=== PATIENT | female | born 1950 | race Caucasian/White ===

== ENCOUNTER 2017-10-08 17:21 | Inpatient (IN) | payer MEDICARE ==
[~2017-10-08] VITALS: Ht 152.4 cm; Wt 70.1 kg
[2017-10-08] MEDS ORDERED: FAMOTIDINE 20 MG/2 ML IVP ONE (18:00)
[2017-10-08] MEDS ORDERED: SODIUM CHLORIDE FLUSH 10ML SYR IVF ONE (18:00)
[2017-10-08] MEDS ORDERED: MAALOX/HYOSCYAMINE/LIDOCAINE 45 ML BTL PO ONE (18:00)
[2017-10-08] MEDS ORDERED: SODIUM CHLORIDE 0.9% 1,000ML IVBOLUS ONE (18:00)
[2017-10-08 18:55] LABS: ALANINE AMINOTRANSFERASE 20 U/L (12-78); ANION GAP 6 mmol/L (5-15); CALCIUM 9.5 mg/dL (8.5-10.1); CHLORIDE 107 mmol/L (98-107)
[2017-10-08 18:58] LABS: ALKALINE PHOSPHATASE 109 U/L (45-117); BILIRUBIN,TOTAL 0.5 mg/dL (0.2-1.0); CREATININE 0.86 mg/dL (0.55-1.02); TOTAL PROTEIN 7.7 g/dL (6.4-8.2)
[2017-10-08 19:14] LABS: BASOPHILS # (AUTO) 0.12 x10^3/uL (0-0.1); BASOPHILS % (AUTO) 1 % (0-1); EOSINOPHILS # (AUTO) 0.08 x10^3/uL (0-0.4); EOSINOPHILS % (AUTO) 1 % (1-7); LYMPHOCYTES # (AUTO) 2.26 x10^3/uL (1-3.4); LYMPHOCYTES % (AUTO) 24 % (22-44); MD SCAN; MEAN CORPUSCULAR HGB CONC 33.8 g/dL (32.4-35.8); MEAN CORPUSCULAR VOLUME 88.7 fL (80-100); MEAN PLATELET VOLUME 8.2 fL (7.4-10.4); MONOCYTES # (AUTO) 0.48 x10^3/uL (0.2-0.8); MONOCYTES % (AUTO) 5 % (2-9); NEUTROPHILS # (AUTO) 6.49 x10^3/uL (1.8-6.8); NEUTROPHILS % (AUTO) 69 % (42-75); PLATELET COUNT 261 x10^3/uL (130-400); RED BLOOD COUNT 5.45 x10^6/uL (3.82-5.3); RED CELL DISTRIBUTION WIDTH 14.3 % (9.6-15.2)
[2017-10-08] MEDS ORDERED: ONDANSETRON 2MG/ML, 2ML IVPush ONE (20:30)
[2017-10-08] MEDS ORDERED: MORPHINE SULFATE 4 MG/ML, 1ML IVPush ONE ×2 (20:30→22:30)
[2017-10-08] MEDS ORDERED: FAMOTIDINE 20 MG/2 ML ONE (20:58)
[2017-10-08] MEDS ORDERED: ONDANSETRON 2MG/ML, 2ML ONE (20:58)
[2017-10-08] MEDS ORDERED: MAALOX/HYOSCYAMINE/LIDOCAINE 45 ML BTL ONE (20:58)
[2017-10-08] MEDS ORDERED: morphine SULFATE 10 MG/ML, 1ML ONE ×2 (20:58→23:16)
[2017-10-08] MEDS ORDERED: OMNIPAQUE 350 MG/ML, 100ML BOTTLE ONE (21:41)
[2017-10-08] MEDS ORDERED: EFFEXOR (22:05)
[2017-10-08] MEDS ORDERED: POLYETHYLENE GLYCOL 17 GM PACKET PO PRN (23:00)
[2017-10-08] MEDS ORDERED: ACETAMINOPHEN 325 MG TABLET PO PRN (23:00)
[2017-10-08] MEDS ORDERED: ENALAPRILAT 1.25 MG/ML, 2ML IVPush PRN (23:00)
[2017-10-08] MEDS: ENOXAPARIN 40 MG/0.4 ML SQ SCH (23:00)
[2017-10-08] MEDS ORDERED: NS + 20MEQ KCL 1,000 ML IV ONE (23:21)
[2017-10-08] MEDS ORDERED: NS + 20MEQ KCL 1,000 ML IV SCH (23:42)
[2017-10-08 23:49] LABS: MICROSCOPIC NOT IND
[2017-10-09 00:04] LABS: CULTURE INDICATED? NO
[2017-10-09 00:40] VITALS: BP 151/79
[2017-10-09] MEDS: TEMAZEPAM 15 MG CAPSULE PO PRN (00:45)
[2017-10-09 01:42] VITALS: BP 142/72
[2017-10-09] MEDS: METOCLOPRAMIDE 5 MG/ML, 2ML IVPush PRN ×4 (02:28→22:46)
[2017-10-09] MEDS: morphine SULFATE 10 MG/ML, 1ML IVPush PRN ×7 (02:53→22:44)
[2017-10-09] MEDS: SODIUM CHLORIDE 0.9% 1,000 ML IV SCH ×3 (02:55→21:20)
[2017-10-09] MEDS: ONDANSETRON 2MG/ML, 2ML IVPush PRN ×3 (05:23→19:20)
[2017-10-09 07:21] VITALS: BP 124/75
[2017-10-09] MEDS: FAMOTIDINE 20 MG/2 ML IVPush SCH ×2 (09:02→21:25)
[2017-10-09 10:00] LABS: ANION GAP 8 mmol/L (5-15); CALCIUM 8.2 mg/dL (8.5-10.1); CHLORIDE 110 mmol/L (98-107); CREATININE 0.65 mg/dL (0.55-1.02)
[2017-10-09] MEDS: SUCRALFATE 1 GM/10 ML UDC PO SCH ×4 (11:00→21:25)
[2017-10-09 13:05] VITALS: BP 118/69
[2017-10-09 19:20] VITALS: BP 177/73
[2017-10-09 21:00] VITALS: BP 128/67
[2017-10-09] MEDS: ENOXAPARIN 40 MG/0.4 ML SQ SCH (21:25)
[2017-10-10] MEDS: TEMAZEPAM 15 MG CAPSULE PO PRN (00:30)
[2017-10-10 00:31] VITALS: BP 162/80
[2017-10-10] MEDS: ONDANSETRON 2MG/ML, 2ML IVPush PRN ×3 (05:13→18:38)
[2017-10-10] MEDS: SODIUM CHLORIDE 0.9% 1,000 ML IV SCH ×2 (05:13→15:51)
[2017-10-10 05:30] LABS: BASOPHILS # (AUTO) 0.05 x10^3/uL (0-0.1); BASOPHILS % (AUTO) 1 % (0-1); EOSINOPHILS # (AUTO) 0.01 x10^3/uL (0-0.4); EOSINOPHILS % (AUTO) 0 % (1-7); LYMPHOCYTES # (AUTO) 2.94 x10^3/uL (1-3.4); LYMPHOCYTES % (AUTO) 30 % (22-44); MD NO; MEAN CORPUSCULAR HEMOGLOBIN 29.7 pg (27.0-34.8); MEAN CORPUSCULAR HGB CONC 33.4 g/dL (32.4-35.8); MEAN CORPUSCULAR VOLUME 88.9 fL (80-100); MONOCYTES # (AUTO) 0.79 x10^3/uL (0.2-0.8); MONOCYTES % (AUTO) 8 % (2-9); NEUTROPHILS # (AUTO) 6.09 x10^3/uL (1.8-6.8); NEUTROPHILS % (AUTO) 62 % (42-75); PLATELET COUNT 224 x10^3/uL (130-400); RED BLOOD COUNT 4.49 x10^6/uL (3.82-5.3); RED CELL DISTRIBUTION WIDTH 13.6 % (9.6-15.2)
[2017-10-10 05:43] LABS: ALANINE AMINOTRANSFERASE 19 U/L (12-78); ANION GAP 7 mmol/L (5-15); CALCIUM 8.5 mg/dL (8.5-10.1); CHLORIDE 109 mmol/L (98-107); CREATININE 0.75 mg/dL (0.55-1.02)
[2017-10-10 05:45] LABS: ALKALINE PHOSPHATASE 79 U/L (45-117); BILIRUBIN,TOTAL 0.4 mg/dL (0.2-1.0)
[2017-10-10] MEDS: SUCRALFATE 1 GM/10 ML UDC PO SCH ×4 (06:57→21:00)
[2017-10-10 07:26] VITALS: BP 159/84
[2017-10-10] MEDS: FAMOTIDINE 20 MG/2 ML IVPush SCH ×2 (08:05→21:33)
[2017-10-10] MEDS: METOCLOPRAMIDE 5 MG/ML, 2ML IVPush PRN ×3 (08:06→21:34)
[2017-10-10] MEDS: morphine SULFATE 10 MG/ML, 1ML IVPush PRN ×4 (12:38→21:34)
[2017-10-10 14:31] VITALS: BP 154/80
[2017-10-10] MEDS ORDERED: morphine SULFATE 10 MG/ML, 1ML IVPush ONE (17:00)
[2017-10-10 18:53] VITALS: BP 162/74
[2017-10-10] MEDS: ENOXAPARIN 40 MG/0.4 ML SQ SCH (19:57)
[2017-10-11 00:37] VITALS: BP 145/77
[2017-10-11] MEDS: ONDANSETRON 2MG/ML, 2ML IVPush PRN ×3 (00:41→13:25)
[2017-10-11] MEDS: morphine SULFATE 10 MG/ML, 1ML IVPush PRN ×4 (00:41→10:37)
[2017-10-11] MEDS: SODIUM CHLORIDE 0.9% 1,000 ML IV SCH ×2 (02:21→12:19)
[2017-10-11] MEDS: METOCLOPRAMIDE 5 MG/ML, 2ML IVPush PRN ×2 (03:59→10:44)
[2017-10-11] MEDS: SUCRALFATE 1 GM/10 ML UDC PO SCH ×4 (07:00→20:22)
[2017-10-11 07:02] VITALS: BP 169/77
[2017-10-11] MEDS: FAMOTIDINE 20 MG/2 ML IVPush SCH ×2 (07:51→20:21)
[2017-10-11 08:17] LABS: INTERNATIONAL NORMALIZED RATIO 1.01 (0.93-1.1); PROTHROMBIN TIME 10.5 Seconds (9.6-11.5)
[2017-10-11] MEDS ORDERED: FENTANYL PF 100 MCG/2ML IVPush PRN (11:00)
[2017-10-11] MEDS ORDERED: EPINEPHRINE 1 MG/ML, 1ML ONE (13:22)
[2017-10-11] MEDS ORDERED: BUPIVACAINE/PF 0.5% ONE (13:22)
[2017-10-11] MEDS ORDERED: FENTANYL PF 100 MCG/2ML ONE ×2 (15:03)
[2017-10-11] MEDS ORDERED: MIDAZOLAM 1 MG/ML, 2ML ONE (15:03)
[2017-10-11] MEDS ORDERED: PROPOFOL 10 MG/ML, 20ML ONE (15:05)
[2017-10-11] MEDS ORDERED: ROCURONIUM 10 MG/ML,10ML ONE (15:05)
[2017-10-11] MEDS ORDERED: SUCCINYLCHOLINE 20 MG/ML, 10ML ONE (15:06)
[2017-10-11] MEDS ORDERED: GLYCOPYRROLATE 0.4 MG/2 ML, 2ML ONE (15:07)
[2017-10-11] MEDS ORDERED: NEOSTIGMINE 1 MG/ML, 10ML ONE (15:07)
[2017-10-11] MEDS ORDERED: CEFOTETAN PMX 2GM/50ML 50 ML ONE (15:24)
[2017-10-11] MEDS ORDERED: HYDROmorphone 1 MG/ML, 1ML IV PRN (15:30)
[2017-10-11] MEDS ORDERED: hydrALAzine 20 MG/ML, 1ML IV PRN (15:30)
[2017-10-11] MEDS ORDERED: ONDANSETRON 2MG/ML, 2ML IVPush PRN (15:30)
[2017-10-11] MEDS ORDERED: MEPERIDINE/PF 25MG/0.5ML IVPush PRN (15:30)
[2017-10-11] MEDS ORDERED: FENTANYL PF 100 MCG/2ML IV PRN (15:30)
[2017-10-11] MEDS ORDERED: LABETALOL 5MG/ML, 20ML IV PRN (15:30)
[2017-10-11] MEDS ORDERED: PROMETHAZINE 25 MG/ML, 1ML IV PRN (15:30)
[2017-10-11] MEDS ORDERED: OXYcodone 5 MG/5 ML ORAL.SOL UDC PO PRN (15:30)
[2017-10-11] MEDS ORDERED: ONDANSETRON 2MG/ML, 2ML ONE (15:45)
[2017-10-11] MEDS ORDERED: DEXAMETHASONE 4 MG/ML, 1ML ONE ×2 (15:45)
[2017-10-11] MEDS ORDERED: BUPIVACAINE/PF-EPI 0.5% 1:200K IM ONE (16:03)
[2017-10-11] MEDS ORDERED: MEPERIDINE/PF 25MG/0.5ML ONE (16:29)
[2017-10-11] MEDS ORDERED: OXYcodone 5 MG/5 ML ORAL.SOL UDC ONE (16:29)
[2017-10-11] MEDS ORDERED: LABETALOL 5MG/ML, 20ML ONE (16:39)
[2017-10-11 18:00] VITALS: BP 166/94
[2017-10-11 19:11] VITALS: BP 166/83
[2017-10-11] MEDS ORDERED: morphine SULFATE 10 MG/ML, 1ML IV PRN (19:30)
[2017-10-11] MEDS ORDERED: LORazepam 2 MG/ML, 1ML IV PRN (19:30)
[2017-10-11] MEDS ORDERED: DIPHENHYDRAMINE 25 MG CAPSULE PO PRN (19:30)
[2017-10-11] MEDS ORDERED: DIPHENHYDRAMINE 50 MG/ML, 1ML IV PRN (19:30)
[2017-10-11] MEDS ORDERED: POTASSIUM CHLORIDE 20 MEQ in D5%-0.45% NACL 1,000 ML IV SCH (19:30)
[2017-10-11] MEDS ORDERED: LORazepam 1MG TABLET PO PRN (19:30)
[2017-10-11] MEDS: SODIUM CHLORIDE FLUSH 10ML SYR IVF SCH (20:21)
[2017-10-11] MEDS: ACETAMINOPHEN 500 MG TABLET PO SCH (20:21)
[2017-10-11] MEDS: IBUPROFEN 600 MG TABLET PO SCH (20:22)
[2017-10-11] MEDS: ENOXAPARIN 40 MG/0.4 ML SQ SCH (23:11)
[2017-10-11 23:12] VITALS: BP 150/84
[2017-10-12] MEDS: ACETAMINOPHEN 500 MG TABLET PO SCH ×3 (01:52→13:30)
[2017-10-12 02:11] VITALS: BP 156/80
[2017-10-12 05:25] LABS: ALBUMIN 3.1 g/dL (3.4-5.0); ANION GAP 11 mmol/L (5-15); CALCIUM 9.1 mg/dL (8.5-10.1); CHLORIDE 101 mmol/L (98-107)
[2017-10-12 05:28] LABS: ALANINE AMINOTRANSFERASE 40 U/L (12-78); ALKALINE PHOSPHATASE 83 U/L (45-117); BILIRUBIN,TOTAL 0.7 mg/dL (0.2-1.0); CREATININE 0.88 mg/dL (0.55-1.02); TOTAL PROTEIN 6.7 g/dL (6.4-8.2)
[2017-10-12 05:29] LABS: BASOPHILS % (AUTO) 0 % (0-1); EOSINOPHILS % (AUTO) 0 % (1-7); LYMPHOCYTES # (AUTO) 0.66 x10^3/uL (1-3.4); LYMPHOCYTES % (AUTO) 7 % (22-44); MD NO; MEAN CORPUSCULAR HEMOGLOBIN 30.3 pg (27.0-34.8); MEAN CORPUSCULAR HGB CONC 34.2 g/dL (32.4-35.8); MEAN CORPUSCULAR VOLUME 88.6 fL (80-100); MEAN PLATELET VOLUME 7.9 fL (7.4-10.4); MONOCYTES # (AUTO) 0.55 x10^3/uL (0.2-0.8); MONOCYTES % (AUTO) 6 % (2-9); NEUTROPHILS % (AUTO) 88 % (42-75); PLATELET COUNT 230 x10^3/uL (130-400); RED BLOOD COUNT 5.18 x10^6/uL (3.82-5.3); RED CELL DISTRIBUTION WIDTH 13.6 % (9.6-15.2)
[2017-10-12] MEDS: SUCRALFATE 1 GM/10 ML UDC PO SCH ×2 (07:00→11:00)
[2017-10-12 07:22] VITALS: BP 138/80
[2017-10-12] MEDS ORDERED: FAMO-79 PO (08:10)
[2017-10-12] MEDS: IBUPROFEN 600 MG TABLET PO SCH (08:27)
[2017-10-12] MEDS: FAMOTIDINE 20 MG/2 ML IVPush SCH (08:30)
[2017-10-12] MEDS: SODIUM CHLORIDE FLUSH 10ML SYR IVF SCH (08:31)
[2017-10-12] MEDS ORDERED: ENOXAPARIN 40 MG/0.4 ML SQ SCH (14:00)
== END 2017-10-12 15:52 | disposition home or self-care (01) | DRG 418 ==
LOC: ED 22:23 → EDIP 22:46 → 3NE 23:47
PROVIDERS: ADMIT Family Medicine; ATTEND Family Medicine
PROC: 0FT44ZZ Resection of Gallbladder, Percutaneous Endoscopic Approach (ICD-10-PCS; principal; 2017-10-11 15:15)
DX: K80.10 Calculus of gallbladder with chronic cholecystitis without obstruction (principal); F33.9 Major depressive disorder, recurrent, unspecified; E87.6 Hypokalemia; K44.9 Diaphragmatic hernia without obstruction or gangrene; Z98.51 Tubal ligation status; Z80.0 Family history of malignant neoplasm of digestive organs; Z88.8 Allergy status to other drugs, medicaments and biological substances
CPT/HCPCS: 36415; 74177; 76705; 78227; 80048; 80053; 81003; 83690; 83735; 85025; 85610; 88304; 93005; 96361; 96374; 96375; J0171; J1100; J1650; J2175; J2250; J2405; J2704; J2710; J3010; J3480; J3490; Q9967; A9537; C9898; J0330; J2270; J2765; J7030; S0028; S0074